=== PATIENT | female | born 1990 | race Caucasian/White ===

== ENCOUNTER 2022-02-13 08:33 | Outpatient (REF) | payer MEDICAID, SELFPAY ==
--- NOTE | ~2022-02-13 | XR_ITS ---
EXAMINATION: XR CERVICAL SPINE CLINICAL INFORMATION: Neck pain COMPARISON: None TECHNIQUE: 3 views of the cervical spine were obtained. FINDINGS: There is mild curvature of the lower cervical and upper thoracic spine to the left. Bone alignment is otherwise normal. No fracture or dislocation is seen. Disc spaces are normal. Prevertebral soft tissues are normal. XR/XR cervical spine 2V IMPRESSION: Mild curvature of the lower cervical and upper thoracic spine to the left otherwise unremarkable exam.
== END 2022-02-13 08:34 | disposition home or self-care (01) ==
LOC: HO.XRAY 08:33
PROVIDERS: PCP Internal Medicine; Visit Provider Psychiatry & Neurology Neurology
DX: M54.2 Cervicalgia (principal); M62.838 Other muscle spasm; G24.3 Spasmodic torticollis
CPT/HCPCS: 72040; 99202

== ENCOUNTER 2022-04-08 13:00 | Outpatient (REF) | payer MEDICAID, SELFPAY ==
--- NOTE | 2022-04-08 13:11 | EEG_ITS ---
This is a 16-channel EEG with an EKG lead. The patient is reported awake during the tracing. Background EEG rhythm is about 12 to 13 hertz 5 to 50 microvolt posteriorly and lower amplitude fast anteriorly. Photic stimulation does not produce any significant abnormality. Hyperventilation is not performed. Cardiac lead does not reveal any significant abnormality. No sharp wave spikes or paroxysmal tendency noted. IMPRESSION: Unremarkable EEG. MD LIZETH Mcnair/GINA / [id number]
== END 2022-04-08 13:01 | disposition home or self-care (01) ==
LOC: HO.NEURO 13:00
PROVIDERS: Visit Provider Psychiatry & Neurology Neurology
DX: M54.2 Cervicalgia (principal); G24.3 Spasmodic torticollis; M62.838 Other muscle spasm
CPT/HCPCS: 95816